=== PATIENT | female | born 1950 | race Caucasian/White ===

== ENCOUNTER 2020-03-06 11:55 | Day surgery (SDC) | payer MEDICARE ==
[~2020-03-06] VITALS: Ht 167.6 cm; Wt 63.6 kg
[2020-03-06 12:45] VITALS: BP 149/69
[2020-03-06] MEDS ORDERED: AMLO-150 PO (12:47)
[2020-03-06] MEDS ORDERED: ASPI81TA45 PO (12:47)
[2020-03-06] MEDS ORDERED: ROSU20TA2 PO (12:47)
[2020-03-06] MEDS ORDERED: ISOS30TA8 PO (12:47)
[2020-03-06] MEDS ORDERED: SODIUM CHLORIDE 0.9% 1,000 ML IV SCH ×2 (13:00→15:00)
[2020-03-06 13:14] LABS: BASOPHILS % (AUTO) 1 % (0-1); EOSINOPHILS % (AUTO) 3 % (1-7); LYMPHOCYTES % (AUTO) 24 % (22-44); MEAN CORPUSCULAR HEMOGLOBIN 31.4 pg (27.0-34.8); MEAN CORPUSCULAR HGB CONC 32.6 g/dL (32.4-35.8); MEAN PLATELET VOLUME 10.1 fL (7.4-10.4); MONOCYTES % (AUTO) 6 % (2-9); NEUTROPHILS % (AUTO) 67 % (42-75); PLATELET COUNT 217 x10^3/uL (130-400); RED BLOOD COUNT 4.37 x10^6/uL (3.82-5.3); RED CELL DISTRIBUTION WIDTH 13.1 % (9.6-15.2)
[2020-03-06 13:16] LABS: MD NO
[2020-03-06 13:23] LABS: ANION GAP 4 mmol/L (5-15); CALCIUM 8.9 mg/dL (8.5-10.1); CHLORIDE 111 mmol/L (98-107); CREATININE 0.69 mg/dL (0.55-1.02)
[2020-03-06] MEDS ORDERED: MIDAZOLAM 1 MG/ML, 5ML ONE (13:29)
[2020-03-06] MEDS ORDERED: FENTANYL PF 100 MCG/2ML ONE (13:29)
[2020-03-06] MEDS ORDERED: TICAGRELOR 90 MG TABLET ONE (13:29)
[2020-03-06] MEDS ORDERED: HEPARIN 1,000 UNITS/ML, 10ML ONE (13:30)
[2020-03-06] MEDS ORDERED: LIDOCAINE-MPF 1%, 5ML ONE (13:30)
[2020-03-06] MEDS ORDERED: VERAPAMIL 2.5 MG/ML, 2ML ONE (13:30)
[2020-03-06] MEDS ORDERED: BIVALIRUDIN 250 MG ONE (13:30)
[2020-03-06] MEDS ORDERED: NITROGLYCERIN 30 MCG/ML, 20ML VIAL ONE (13:46)
== END 2020-03-06 17:00 | disposition home or self-care (01) ==
LOC: CACL 11:55
PROVIDERS: ATTEND Internal Medicine Cardiovascular Disease
DX: R94.39 Abnormal result of other cardiovascular function study (principal); I25.110 Atherosclerotic heart disease of native coronary artery with unstable angina pectoris; I25.84 Coronary atherosclerosis due to calcified coronary lesion; I25.82 Chronic total occlusion of coronary artery; I65.23 Occlusion and stenosis of bilateral carotid arteries; I10 Essential (primary) hypertension; E78.5 Hyperlipidemia, unspecified; F17.210 Nicotine dependence, cigarettes, uncomplicated; Z79.899 Other long term (current) drug therapy; Z98.890 Other specified postprocedural states
CPT/HCPCS: 36415; 80048; 85025; 93458; 93880; 93970; 99156; C1769; C1894; J1644; J2250; J3010; Q9967; J0583